=== PATIENT | female | born 1955 | race Caucasian/White ===

== ENCOUNTER 2020-01-07 08:08 | Outpatient (CLI) | payer MEDICARE ==
--- NOTE | 2020-01-07 09:15 | BD ---
EXAM: Bone densitometry using DEXA HISTORY: 64 yo female. Screening for postmenopausal osteoporosis FINDINGS: L1--bone mineral density 0.983 g/sq cm; T score -0.1 ; Z score 1.6 L2--bone mineral density 1.107 g/sq cm; T score 0.7 ; Z score 2.6 L3--bone mineral density 1.147 g/sq cm; T score 0.6 ; Z score 2.5 L4--bone mineral density 1.061 g/sq cm; T score 0.0 ; Z score 2.0 Total L1-L4--bone mineral density 1.077 g/sq cm; T score 0.3 ; Z score 2.1 Left femoral neck--bone mineral density0.757; T score -0.8 ; Z score 0.8 Total proximal left femur--bone mineral density 0.996; T score 0.4 ; Z score 1.8 IMPRESSION: Normal BMD
== END 2020-01-07 08:09 | disposition home or self-care (01) ==
LOC: BICMAMMO 08:08
PROVIDERS: ATTEND Family Medicine Sports Medicine
DX: Z13.820 Encounter for screening for osteoporosis (principal); Z78.0 Asymptomatic menopausal state
CPT/HCPCS: 77080

== ENCOUNTER 2022-02-15 08:17 | Outpatient (CLI) | payer MEDICARE, OTHER | END 2022-02-15 08:18 | disposition home or self-care (01) | LOC: BICMAMMO 08:17 | PROVIDERS: ATTEND Family Medicine Sports Medicine | DX: Z12.31 Encounter for screening mammogram for malignant neoplasm of breast (principal); Z13.820 Encounter for screening for osteoporosis; M85.80 Other specified disorders of bone density and structure, unspecified site; Z78.0 Asymptomatic menopausal state | CPT/HCPCS: 77063; 77067; 77080 ==

== ENCOUNTER 2023-04-11 10:57 | Outpatient (CLI) | payer MEDICARE, OTHER | END 2023-04-11 10:58 | disposition home or self-care (01) | LOC: BICMAMMO 10:57 | PROVIDERS: ATTEND Family Medicine Sports Medicine | DX: Z12.31 Encounter for screening mammogram for malignant neoplasm of breast (principal) | CPT/HCPCS: 77063; 77067 ==

== ENCOUNTER 2023-05-01 10:48 | Outpatient (CLI) | payer MEDICARE, OTHER | END 2023-05-01 10:49 | disposition home or self-care (01) | LOC: DTY/OP 10:48 | PROVIDERS: ATTEND Family Medicine Sports Medicine | DX: E11.9 Type 2 diabetes mellitus without complications (principal) | CPT/HCPCS: 97802 ==

== ENCOUNTER 2024-10-14 09:06 | Outpatient (CLI) | payer MEDICARE | END 2024-10-14 09:07 | disposition home or self-care (01) | LOC: BICULT 09:06 | PROVIDERS: ATTEND Family Medicine Sports Medicine | DX: R79.89 Other specified abnormal findings of blood chemistry (principal) | CPT/HCPCS: 76700 ==